=== PATIENT | male | born 1960 | race Caucasian/White ===

== ENCOUNTER 2016-08-10 10:10 | Day surgery (SDC) | payer BC ==
[~2016-08-10] VITALS: Ht 172.7 cm; Wt 69.4 kg
[2016-08-10 10:47] VITALS: BP 120/78; PULSE 55; TEMP 98.3
[2016-08-10] MEDS ORDERED: ATIVAN 0.50.5 MG/TAB PO (10:53)
[2016-08-10] MEDS ORDERED: CELEXA40 MG PO (10:54)
[2016-08-10 12:25] VITALS: BP 112/82; PULSE 55; TEMP 97.4
[2016-08-10 12:40] VITALS: BP 109/76; PULSE 58
[2016-08-10 12:55] VITALS: BP 117/96; PULSE 51
== END 2016-08-10 13:10 | disposition home or self-care (01) ==
LOC: SDCO 10:10
DX: Z12.11 Encounter for screening for malignant neoplasm of colon (principal); D12.2 Benign neoplasm of ascending colon
CPT/HCPCS: J2250; J3010; J7030

== ENCOUNTER → 2018-09-01 | Outpatient (CLI) | payer BC ==
[~2018-09-01] MED LIST: ATIVAN 0.50.5 MG/TAB PO; CELEXA40 MG PO
== END ==
LOC: COL.VAS 08:20
DX: R09.89 Other specified symptoms and signs involving the circulatory and respiratory systems (principal); F17.210 Nicotine dependence, cigarettes, uncomplicated

== ENCOUNTER → 2021-10-27 | Outpatient (CLI) | payer BC | LOC: COL.RAD 08:54 | DX: Q76.49 Other congenital malformations of spine, not associated with scoliosis (principal); R17 Unspecified jaundice | CPT/HCPCS: A9503 ==

== ENCOUNTER → 2022-02-08 | Outpatient (CLI) | payer BC | LOC: COL.PUL 02-01 10:00 | DX: R06.02 Shortness of breath (principal); F17.210 Nicotine dependence, cigarettes, uncomplicated ==

== ENCOUNTER → 2022-02-13 | Outpatient (CLI) | payer BC | LOC: COL.RAD 07:12 | DX: Z12.2 Encounter for screening for malignant neoplasm of respiratory organs (principal); J43.2 Centrilobular emphysema; F17.210 Nicotine dependence, cigarettes, uncomplicated ==